=== PATIENT | female | born 1990 | race Two or more races ===

== ENCOUNTER 2019-07-28 15:35 | Emergency (ER) | payer OTHER ==
[~2019-07-28] VITALS: Ht 162.6 cm; Wt 74.8 kg
[2019-07-28] MEDS ORDERED: ONDANSETRON 4 MG/2 ML VIAL IV ONE (15:45)
--- NOTE | 2019-07-28 16:00 | NUR ---
Still for IV line insertion, CT scan & accucheck, patient is initially refusing all treatments, MD is aware. Hands off report given to DELIA Reyes.
--- NOTE | 2019-07-28 16:00 | NUR ---
PT BIB [facility] FOR GRAND MAL SEIZURE IN THE BATHROOM.PT WAS FOUND BY HER ROOMMATE UNCONSCIOUS, PALE AND CYANOTIC ON THE BATHROOM FLOOR.PT HAS A HX OF EPILEPSY, LAST SEIZURE ACTIVITY WAS 2 WEEKS AGO. PT WAS TOLD BY NEUROLOGIST THAT SEIZURE WAS CAUSED BY INSOMINA.PT IS A/OX3, LETHARGIC , SPEAKS IN COMPLETE SENTENCES. NO SOB, NO COUGH, LUNG SOUNDS CLEAR. HR NORMAL , NO CHEST PAIN, NORMAL RHYTHM. PT IS NAUSEOUS , VOMITED 3 TIMES. NO DIARRHEA.BRUISING PRESENT ON HER KNEES,R CORADO,R ARM AND SHOULDER. PT IN BED SIDE RAILS UP X2, SIDE RAILS PADDED , MONITORS ATTACHED, V/S STABLE. CALL LIGHT W/IN REACH. FALL PRECAUTIONS IMPLEMENTED.
[2019-07-28 16:01] LABS: BASOPHILS % (AUTO) 0.3 % (0.0-2.0); EOSINOPHILS # (AUTO) 0.1 K/uL (0.0-0.7); EOSINOPHILS % (AUTO) 0.5 % (0.0-7.0); HEMATOCRIT 42.2 % (31.2-41.9); HEMOGLOBIN 14.2 g/dL (10.9-14.3); LYMPHOCYTES # (AUTO) 1.5 K/uL (20.0-40.0); LYMPHOCYTES % (AUTO) 12.4 % (20.5-51.5); MEAN CORPUSCULAR HEMOGLOBIN 31.7 uug (24.7-32.8); MEAN CORPUSCULAR HGB CONC 34 g/dL (32.3-35.6); MONOCYTES # (AUTO) 0.7 K/uL (2.0-10.0); MONOCYTES % (AUTO) 5.7 % (0.0-11.0); NEUTROPHILS # (AUTO) 9.7 K/uL (1.8-8.9); NEUTROPHILS % (AUTO) 81.1 % (38.5-71.5); PLATELET COUNT (AUTO) 324 K/uL (179-408); RED BLOOD CELL COUNT(AUTO) 4.49 MIL/uL (3.63-4.92); WHITE BLOOD COUNT (AUTO) 11.9 K/uL (3.8-11.8)
[2019-07-28 16:10] LABS: CARBON DIOXIDE 19 mmol/L (21-32); CHLORIDE 106 mmol/L (98-107); GLUCOSE 172 mg/dL (74-106); POTASSIUM 4.5 mmol/L (3.5-5.1); UREA NITROGEN, BLOOD 10 mg/dL (7-18)
[2019-07-28 16:16] LABS: ALANINE AMINOTRANSFERASE 24 U/L (14-59); ALKALINE PHOSPHATASE 70 U/L (50-136); ASPARTATE AMINOTRANSFERASE 14 U/L (15-37); BILIRUBIN,DIRECT 0.1 mg/dL (0.0-0.2); BILIRUBIN,TOTAL 0.2 mg/dL (0.2-1.0); TOTAL PROTEIN, SERUM 8.5 g/dL (6.4-8.2)
[2019-07-28] MEDS ORDERED: ONDANSETRON 4 MG/2 ML VIAL ONE (16:19)
[2019-07-28] MEDS ORDERED: LEVE750T4 PO (16:29)
[2019-07-28 16:38] LABS: ETHANOL < 3 MG/DL (0-0)
[2019-07-28] MEDS ORDERED: IV NS 1000 ML 1,000 ML IV ONE (16:45)
--- NOTE | 2019-07-28 17:12 | NUR ---
PT RESTING IN BED . NO ACUTE DISTRESS.
[2019-07-28 17:50] LABS: *BILIRUBIN,URIN NEGATIVE (NEGATIVE); *BLOOD, URINE 1+ (NEGATIVE); *CLARITY,URINE CLOUDY (CLEAR); *COLOR,URINE YELLOW (YELLOW); *KETONES,URINE NEGATIVE (NEGATIVE); *UROBILINOGEN,URINE 0.2 E.U./dl (NORMAL); LEUKOCYTE ESTERASE ,URINE 2+ (NEGATIVE); NITRITE, URINE NEGATIVE (NEGATIVE); UGLUCOSE NEGATIVE (NEGATIVE)
[2019-07-28 17:55] LABS: BACTERIA,URINE FEW /HPF (NONE SEEN); SQUAMOUS EPITHELIAL CELL,UR MODERATE /HPF (NONE SEEN)
[2019-07-28 18:02] LABS: *AMPHETAMINE, URINE NEGATIVE (NEGATIVE); *BARBITURATE, URINE NEGATIVE (NEGATIVE); *CANNABINOID, URINE NEGATIVE (NEGATIVE); *COCCAINE, URINE POSITIVE (NEGATIVE); *OPIATE, URINE NEGATIVE (NEGATIVE); *PHENCYCLIDINE SCREEN,URINE NEGATIVE (NEGATIVE)
[2019-07-28 18:04] LABS: *URINE HCG, QUAL NEGATIVE (NEGATIVE)
[2019-07-28] MEDS ORDERED: NITROFURANTOIN/NITROFURAN MAC 100 MG CAPSULE ONE (18:09)
[2019-07-28] MEDS ORDERED: NITROFURANTOIN/NITROFURAN MAC 100 MG CAPSULE PO ONE (18:15)
--- NOTE | 2019-07-28 19:11 | NUR ---
PT BEING D/C . ALL QUESTIONS ANSWERED. WAITING FOR A RIDE IN HER BED. REPORT GIVEN TO AUBREE LIN.
--- NOTE | 2019-07-28 19:50 | NUR ---
Pt out of ER with steady gait, no acute signs of distress, VSS, all belongings taken, to be driven home by friend via private vehicle.
[2019-07-28 19:58] VITALS: BP 107/82
== END 2019-07-28 19:58 | disposition home or self-care (01) ==
LOC: ER 15:37
DX: G40.909 Epilepsy, unspecified, not intractable, without status epilepticus (principal); N39.0 Urinary tract infection, site not specified; G47.00 Insomnia, unspecified; D72.829 Elevated white blood cell count, unspecified; Z79.899 Other long term (current) drug therapy; R03.0 Elevated blood-pressure reading, without diagnosis of hypertension
CPT/HCPCS: 36415; 70450; 80048; 80076; 80307 ×2; 81000; 81001; 82550; 82962; 84703; 85025; 87086; 93005; 96361; 96374; 99285; J2405; 87077; A4663; G0480